=== PATIENT | female | born 1970 | race Caucasian/White ===

== ENCOUNTER 2024-09-27 10:26 | Emergency (ER) | payer BC ==
[~2024-09-27] VITALS: Ht 165.1 cm; Wt 70.3 kg
[~2024-09-27 10:26] MED LIST: ATIVAN1 MG PO; NKHM; PREDNISONE10 MG PO; VICODIN 500 MG-1 TAB PO
[2024-09-27] MEDS ORDERED: CEPHALEXIN 500 MG CAP PO ONE (10:40)
[2024-09-27] MEDS ORDERED: Acetaminophen/Oxycodone 5 MG/325 MG TABLET PO ONE (10:40)
[2024-09-27] MEDS ORDERED: Tdap Vaccine 0.5 ML SYR (Adult Vaccine) IM ONE (10:40)
[2024-09-27] MEDS ORDERED: CEPHALEXIN500 M1 PO (11:47)
== END 2024-09-27 11:53 | disposition home or self-care (01) ==
LOC: ED 10:26
DX: S81.012A Laceration without foreign body, left knee, initial encounter (principal); Z79.899 Other long term (current) drug therapy; Z98.51 Tubal ligation status; W01.0XXA Fall on same level from slipping, tripping and stumbling without subsequent striking against object, initial encounter; Y93.89 Activity, other specified; Y92.89 Other specified places as the place of occurrence of the external cause; Y99.8 Other external cause status